=== PATIENT | female | born 1940 | race Caucasian/White ===

== ENCOUNTER 2016-10-11 21:35 | Inpatient (IN) | payer OTHER ==
[~2016-10-11] VITALS: Ht 172.7 cm; Wt 70.0 kg
[2016-10-11 22:30] VITALS: BP 115/64
[2016-10-11] MEDS ORDERED: COZAAR50 M1 PO (23:35)
[2016-10-11] MEDS ORDERED: ATENOLOL25 MG PO (23:36)
[2016-10-11] MEDS ORDERED: ALENDRONATE SOD70 M2 PO (23:37)
[2016-10-11] MEDS ORDERED: LIPITOR20 MG PO (23:37)
[2016-10-11] MEDS ORDERED: FLUOROMETHOLONE5 M1 OU (23:39)
[2016-10-11] MEDS ORDERED: RESTASIS0.051 OU (23:40)
[2016-10-11] MEDS ORDERED: VITAMIN E100 IU PO (23:40)
[2016-10-11] MEDS ORDERED: CENTRUM1 TA2 PO (23:40)
[2016-10-11] MEDS ORDERED: C500500 MG PO (23:41)
[2016-10-12 00:34] LABS: BASOPHIL % 0 % (0-2); PLATELET COUNT 124 x10^3mcL (130-400); RED CELL DISTRIBUTION WIDTH 15.5 % (11.5-14.5)
[2016-10-12 01:07] LABS: ALBUMIN 3.4 g/dL (3.4-5.0); ALKALINE PHOSPHATASE 61 U/L (46-116); ALT/SGPT 16 U/L (14-59); AMYLASE 42 U/L (25-115); AST/SGOT 20 U/L (15-37); BILIRUBIN TOTAL 0.6 mg/dL (0.20-1.00); CALCIUM 8.4 mg/dL (8.5-10.1); CARBON DIOXIDE 33.8 mmol/L (21-32); CHLORIDE SERUM 105 mmol/L (98-107); CREATININE SERUM 0.8 mg/dL (0.6-1.0); GLUCOSE SERUM 106 mg/dL (74-106); HDL CHOLESTEROL 60 mg/dL (40-60); LACTIC DEHYDROGENASE (LDH) 168 U/L (100-190); LIPASE 105 IU/L (73-393); MAGNESIUM 2.1 mg/dL (1.8-2.4); PHOSPHOROUS 2.9 mg/dL (2.5-4.9); POTASSIUM SERUM 4.5 mmol/L (3.5-5.1); SODIUM SERUM 145 mmol/L (136-145); TOTAL PROTEIN, SERUM 6.9 g/dL (6.4-8.2); TRIGLYCERIDES 68 mg/dL (<150)
[2016-10-12 01:08] LABS: CHOLESTEROL 109 mg/dL (<200); CHOLESTEROL/HDL RATIO 1.8
[2016-10-12 01:21] LABS: FREE T4 0.98 ng/dL (0.76-1.46); FREE THYROXINE INDEX 2.6 ug/dL (1.4-4.5); T3 TOTAL 0.72 ng/mL; T4(THYROXINE) 7.9 ug/dL (4.7-13.3)
[2016-10-12 03:25] VITALS: BP 115/64
[2016-10-12 03:31] LABS: UA SPECIFIC GRAVITY >=1.030 (1.005-1.035); microscopic required? YES; urine erythrocyte 3+ (NEGATIVE)
[2016-10-12 04:16] LABS: AMPHETAMINE QUAL UR NONE DETECTED (NEG <=1000)
[2016-10-12 06:39] VITALS: BP 108/57
[2016-10-12 09:41] VITALS: BP 95/48
[2016-10-12 12:00] LABS: BASOPHIL % 0.3 % (0-2)
[2016-10-12 12:09] LABS: CALCIUM 8.3 mg/dL (8.5-10.1); CARBON DIOXIDE 36.2 mmol/L (21-32); CHLORIDE SERUM 104 mmol/L (98-107); CREATININE SERUM 0.9 mg/dL (0.6-1.0); GLUCOSE SERUM 125 mg/dL (74-106); MAGNESIUM 2.1 mg/dL (1.8-2.4); PHOSPHOROUS 2.8 mg/dL (2.5-4.9); POTASSIUM SERUM 4.3 mmol/L (3.5-5.1); SODIUM SERUM 144 mmol/L (136-145)
[2016-10-12 12:18] LABS: PLATELET COUNT 119 x10^3mcL (130-400); RED CELL DISTRIBUTION WIDTH 15.3 % (11.5-14.5)
[2016-10-12 14:00] VITALS: BP 123/64
[2016-10-12 17:08] VITALS: BP 115/53
[2016-10-12 21:31] VITALS: BP 106/46
[2016-10-13 06:03] VITALS: BP 96/52
[2016-10-13 07:05] LABS: BASOPHIL % 0.1 % (0-2)
[2016-10-13 07:10] LABS: PLATELET COUNT 105 x10^3mcL (130-400); RED CELL DISTRIBUTION WIDTH 15.1 % (11.5-14.5)
[2016-10-13 07:24] LABS: CALCIUM 8.4 mg/dL (8.5-10.1); CARBON DIOXIDE 37.1 mmol/L (21-32); CHLORIDE SERUM 105 mmol/L (98-107); GLUCOSE SERUM 109 mg/dL (74-106); POTASSIUM SERUM 4.3 mmol/L (3.5-5.1); SODIUM SERUM 145 mmol/L (136-145)
[2016-10-13 10:06] VITALS: BP 108/59
[2016-10-13 14:04] VITALS: BP 104/59
[2016-10-13 17:45] VITALS: BP 95/55
[2016-10-13 22:38] VITALS: BP 105/54
[2016-10-14] VITALS (8 sets, daily range): BP systolic 84–117; BP diastolic 49–60
[2016-10-14 05:10] LABS: BASOPHIL % 0.4 % (0-2)
[2016-10-14 05:18] LABS: PLATELET COUNT 116 x10^3mcL (130-400); RED CELL DISTRIBUTION WIDTH 15.2 % (11.5-14.5)
[2016-10-14 05:22] LABS: CALCIUM 8.1 mg/dL (8.5-10.1); CARBON DIOXIDE 37.4 mmol/L (21-32); CHLORIDE SERUM 105 mmol/L (98-107); CREATININE SERUM 0.8 mg/dL (0.6-1.0); GLUCOSE SERUM 111 mg/dL (74-106); POTASSIUM SERUM 3.6 mmol/L (3.5-5.1); SODIUM SERUM 145 mmol/L (136-145)
[2016-10-15 05:43] VITALS: BP 111/63
[2016-10-15 06:03] LABS: BASOPHIL % 0.4 % (0-2); RED CELL DISTRIBUTION WIDTH 14.5 % (11.5-14.5)
[2016-10-15 06:18] LABS: CALCIUM 8.5 mg/dL (8.5-10.1); CARBON DIOXIDE 36.6 mmol/L (21-32); CHLORIDE SERUM 104 mmol/L (98-107); CREATININE SERUM 0.8 mg/dL (0.6-1.0); GLUCOSE SERUM 98 mg/dL (74-106); SODIUM SERUM 145 mmol/L (136-145)
[2016-10-15 06:51] LABS: PLATELET COUNT 112 x10^3mcL (130-400)
[2016-10-15 09:20] VITALS: BP 109/58
[2016-10-15 13:08] VITALS: BP 117/63
[2016-10-15 17:35] VITALS: BP 105/51
[2016-10-15 18:29] VITALS: BP 105/51
[2016-10-15 21:26] VITALS: BP 102/55
[2016-10-16 05:25] VITALS: BP 106/55
[2016-10-16 06:29] LABS: BASOPHIL % 0.2 % (0-2)
[2016-10-16 06:50] LABS: CALCIUM 8.6 mg/dL (8.5-10.1); CARBON DIOXIDE 36.5 mmol/L (21-32); CHLORIDE SERUM 103 mmol/L (98-107); CREATININE SERUM 0.8 mg/dL (0.6-1.0); GLUCOSE SERUM 108 mg/dL (74-106); PLATELET COUNT 127 x10^3mcL (130-400); POTASSIUM SERUM 3.7 mmol/L (3.5-5.1); RED CELL DISTRIBUTION WIDTH 14.6 % (11.5-14.5); SODIUM SERUM 144 mmol/L (136-145)
[2016-10-16] MEDS ORDERED: ZOS3PM IV (08:39)
[2016-10-16] MEDS ORDERED: LAC PO (08:40)
[2016-10-16] MEDS ORDERED: ALD25 PO (08:40)
[2016-10-16] MEDS ORDERED: BET80 PO (08:41)
[2016-10-16] MEDS ORDERED: IPRATROPIUM BROM3 M2 HHN (08:42)
[2016-10-16] MEDS ORDERED: XARELTO20 M1 PO (08:43)
[2016-10-16] MEDS ORDERED: L20 PO (08:43)
[2016-10-16] MEDS ORDERED: ACETAMINOPHEN-H1 TA1 PO (08:44)
[2016-10-16] MEDS ORDERED: ECO81 PO (09:01)
[2016-10-16 09:45] VITALS: BP 118/69
[2016-10-16 21:13] VITALS: BP 100/57
[2016-10-17 06:03] VITALS: BP 105/55
[2016-10-17 06:10] LABS: BASOPHIL % 0.4 % (0-2); PLATELET COUNT 154 x10^3mcL (130-400)
[2016-10-17 06:30] LABS: CALCIUM 8.2 mg/dL (8.5-10.1); CHLORIDE SERUM 100 mmol/L (98-107); CREATININE SERUM 0.8 mg/dL (0.6-1.0); GLUCOSE SERUM 101 mg/dL (74-106); POTASSIUM SERUM 4.1 mmol/L (3.5-5.1); SODIUM SERUM 143 mmol/L (136-145)
[2016-10-17 06:55] LABS: RED CELL DISTRIBUTION WIDTH 15.1 % (11.5-14.5)
[2016-10-17 09:18] VITALS: BP 109/63
[2016-10-17 14:14] VITALS: BP 101/48
[2016-10-17 17:00] VITALS: BP 101/48
[2016-10-17 17:43] VITALS: BP 102/60
== END 2016-10-17 18:38 | DRG 177 ==
LOC: DU 21:35
PROVIDERS: Family Medicine; Internal Medicine Cardiovascular Disease; ADMIT Family Medicine
DX: J69.0 Pneumonitis due to inhalation of food and vomit (principal); G93.41 Metabolic encephalopathy; N17.0 Acute kidney failure with tubular necrosis; J96.02 Acute respiratory failure with hypercapnia; I48.92 Unspecified atrial flutter; I25.10 Atherosclerotic heart disease of native coronary artery without angina pectoris; I25.5 Ischemic cardiomyopathy; E03.9 Hypothyroidism, unspecified; I25.2 Old myocardial infarction; Z68.23 Body mass index [BMI] 23.0-23.9, adult; Z95.1 Presence of aortocoronary bypass graft; Z87.891 Personal history of nicotine dependence
CPT/HCPCS: 36600; 80307; 82962; 83880; 84439; 97110-GP; 97116-GP; 97530-GP; A9500; G0480; J1644; J1940; J2543; J2785; J7030; J7620; Q0092